=== PATIENT | female | born 1990 | race Caucasian/White ===

== ENCOUNTER 2025-05-12 08:39 | Emergency (ER) | payer MEDICAID ==
[~2025-05-12] VITALS: Ht 167.6 cm; Wt 77.0 kg
[2025-05-12 08:44] VITALS: O2SAT 98
[2025-05-12] MEDS: METHOCARBAMOL 750MG TABLET PO SCH (09:14)
[2025-05-12] MEDS: KETOROLAC 30MG/ML VIAL IM ONE (09:14)
[2025-05-12] MEDS: LIDOCAINE 5% PATCH TOP SCH (09:14)
[2025-05-12] MEDS: ACETAMINOPHEN 325MG TABLET PO ONE (09:14)
[2025-05-12 09:50] VITALS: BP 102/67; PULSE 78; RESP 18; TEMP 37.1; O2SAT 98
[2025-05-12] MEDS: ONDANSETRON 4MG ODT PO ONE (09:54)
== END 2025-05-12 10:01 | disposition home or self-care (01) ==
LOC: ER 08:39
DX: M54.9 Dorsalgia, unspecified (principal); R51.9 Headache, unspecified; V43.52XA Car driver injured in collision with other type car in traffic accident, initial encounter; Y93.89 Activity, other specified; Y92.410 Unspecified street and highway as the place of occurrence of the external cause; Y99.8 Other external cause status
CPT/HCPCS: 81025; 96372; 99284; Q0162; J1885; Z7610